=== PATIENT | female | born 1945 | race Caucasian/White ===

== ENCOUNTER 2019-04-02 08:58 | Inpatient (IN) ==
[2019-04-02] MEDS ORDERED: NS 1,000 ML IV ONE (10:02)
--- NOTE | 2019-04-02 10:42 | Diag Imaging Result Doc PS360 ---
EXAM: CT ABDOMEN/PELVIS W/O CONTRAST HISTORY: abdominal pain TECHNIQUE: CT abdomen and pelvis without intravenous contrast COMPARISON: 07/17/2017 FINDINGS: There is a large calcified granuloma in the left lung base. No pleural effusions. No cardiomegaly. There is an 18 mm stone within the gallbladder. The common bile duct is dilated with a diameter on at least 13 mm. This is similar to the prior study. No splenomegaly. No focal hepatic abnormality identified on this noncontrasted exam. No inflammation about the pancreas. Normal adrenal glands. No renal stones. No hydronephrosis. Severe atherosclerosis. The urinary bladder is overly distended. Prominent stool throughout the colon, particularly in the rectum. No bowel obstruction. The uterus is small. Small amount of free fluid within the pelvis. There is scoliosis with prominent degenerative changes with fusion of the mid and lower lumbar spine. Inferior in plate bone destruction of the L1 vertebra. This is more prominent than on the prior study. IMPRESSION: 1.Constipation and fecal impaction 2.Cholelithiasis with dilated common bile duct 3.Severe atherosclerosis 4.[place] distended urinary bladder 5.Scoliosis with degenerative spine changes and prior fusion of the mid and lower lumbar spine. Progressive bone destruction to the inferior endplate of the L1 vertebra. This exam was performed using automated exposure control, adjustment of mA or kV according to patient size, and/or use of iterative reconstruction technique. Electronically signed by Justino Cheung 04/02/2019 10:40 AM
[2019-04-02 11:14] LABS: BASO# 0.01 X1000 (0.0-0.2); BASO% 0.1 % (0.0-0.8); EOS# 0.01 X1000 (0.0-0.7); EOS% 0.1 % (0.0-10.0); HEMATOCRIT 39.3 % (37.0-47.0); HEMOGLOBIN 13.4 g/dL (12.0-16.0); IMM GRAN# 0.04 X1000 (0.0-0.04); IMM GRAN% 0.2 % (0.0-0.5); LYMPH# 0.33 X1000 (1.2-3.4); MCH 31.8 PG (27-31); MCHC 34.1 g/dL (33-37); MCV 93.3 FL (81-99); MONO# 0.95 X1000 (0.11-0.59); MONO% 5.7 % (1.7-9.3); MPV 10.5 FL (7.4-10.4); NEUT# 15.21 X1000 (1.4-6.5); NEUT% 91.9 % (42.2-75.2); PLT 233 X1000 (130-400); RBC 4.21 XMIL (4.2-5.4); RDW 12.3 % (11.5-14.5); WBC 16.55 X1000 (4.8-10.8)
[2019-04-02 11:30] LABS: ESTIMATED GFR > 60
[2019-04-02 11:33] LABS: AGAP 10; ALKALINE PHOSPHATASE 105 U/L (32-104); BUN 11 mg/dL (8-22); CALCIUM 8.8 mg/dL (8.8-10.2); CHLORIDE 84 mmol/L (98-107); COSMO 241; CREATININE 0.5 mg/dL (0.5-0.9); GLUCOSE 118 mg/dL (70-104); GOT 27 U/L (10-30); GPT 11 U/L (10-36); LIPASE 17 U/L (13-60); POTASSIUM 4.3 mmol/L (3.5-5.1); TCO2 26 mmol/L (25-35); TOTAL PROTEIN 6.8 g/dL (6.3-8.3)
[2019-04-02 11:35] LABS: SODIUM 119 mmol/L (136-145)
--- NOTE | 2019-04-02 12:26 | PROVIDER DOCUMENTATION ---
This chart was entered by Jerri Lance Scribe, acting as scribe for Desi Washington MD. HPI-Abdominal Pain/GI Problem - General Chief Complaint: N/V/D Stated Complaint: N/V/D Time Seen by Provider: 04/02/19 09:51 Source: patient, family (son) Allergies/Adverse Reactions: Patient Allergies Allergy/AdvReac Type Severity Reaction Status Date / Time No Known Allergies Allergy Verified 04/02/19 09:17 Home Medications: Home Medication List Medication Instructions Recorded Confirmed Last Taken Type Alendronate [Fosamax] 1 tab PO DIRECTED 04/02/19 04/02/19 Unknown History Furosemide 1 tab PO DAILY 04/02/19 04/02/19 Unknown History Potassium Chloride 1 tab PO DAILY 04/02/19 04/02/19 Unknown History - History of Present Illness-ABD Nature of Presenting Problems: 74 yowf presents to the ed with c/o abdominal pain with nausea and diarrhea acute onset 24 hrs prior. pt denies vomiting and has hx of anemia and does take iron daily. pt denies blood being in stool Abdominal Pain Onset Location: reports: generalized abdomen Quality of Pain: reports: cramping Severity in ED: reports: moderate Onset/Duration: reports: 24 hours ago Timing: reports: still present, intermittent Activities at Onset: reports: light activity Exposure to sick contacts?: Yes Modifying Factors: improves with: nothing. worse with: palpation Associated Symptoms: reports: diarrhea, nausea. denies: back/neck pain, chest pain, cough, fever/chills, headaches, shortness of breath, vomiting Last BM: this morning Dark Stools Present?: reports: none noticed Rectal Bleeding: reports: none # of Diarrhea Episodes: 24 (in last 24 hrs) Rectal Pain: reports: none # of Vomiting Episodes: 0 Emesis Description: reports: none Bruising or Bleeding Gums?: No Similar Symptoms Previously?: No Recently seen or treated by another doctor?: No Review of Systems - Adult - REVIEW OF SYSTEMS - ADULT Constitutional: denies: chills, fever Eyes: reports: no symptoms reported Ears, Nose, Mouth & Throat: reports: no symptoms reported Cardiovascular: denies: chest pain, palpitations Respiratory: denies: cough, shortness of breath, wheezing Gastrointestinal: reports: see HPI, abdominal pain, diarrhea, vomiting. denies: nausea Genitourinary: reports: no symptoms reported Musculoskeletal: denies: back pain, neck pain Integumentary: reports: no symptoms reported Neurological: denies: dizziness/vertigo, headache/migraines Psychiatric: reports: no symptoms reported Endocrine: reports: no symptoms reported Hematologic/Lymphatic: reports: no symptoms reported Allergic/Immunologic: reports: no symptoms reported All Other Systems: Reviewed and Negative Past History - Adult - PAST MEDICAL HISTORY-ADULT Review of Records: reports: Old Records Reviewed, Nursing Assessment Review, Medications Reviewed, Social history reviewed & non-contributory. Major Childhood Illnesses: reports: denies history Cardiovascular: reports: HTN, hyperlipidemia Respiratory: reports: denies history Gastrointestinal: reports: denies history Obstetrical/Gynecological: reports: denies history Genitourinary: reports: denies history Musculoskeletal: reports: chronic pain Neurological: reports: denies history Endocrine/Immune: reports: denies history Other Conditions: reports: denies history - PRIOR SURGERIES/PROCEDURES Surgical/Procedure History: reports: joint replacement, back/neck, other (cataract removal) - IMMUNIZATION STATUS Childhood Immunizations: See Nurse Assessment Flu Vaccine: See Nurse Assessment - FAMILY HISTORY Family History: reviewed, not pertinent - SOCIAL HISTORY Smoking: denies Substance Use: denies Living Situation: family Physical Exam-General - PHYSICAL EXAM-ADULT Initial Vital Signs Reviewed: Yes - CONSTITUTIONAL General Appearance: appears well, alert, mild distress, thin - EYES Eyes: PERRL/EOMI, pink conjunctivae - HEAD, EARS, NOSE, MOUTH & THROAT HENMT: negative: moist mucous membranes (dry oral) - NECK Neck: non-tender, full range of motion, normal inspection - RESPIRATORY Respiratory: chest non-tender, lungs clear, normal breath sounds - CARDIOVASCULAR Cardiovascular: normal peripheral pulses, regular rate, rhythm - CHEST (BREASTS) Chest/Breast: deferred - GASTROINTESTINAL (ABDOMEN) Abdominal Exam: soft, guarding, tenderness (generalized). negative: rigid, rebound - GENITOURINARY Female Genitalia/Pelvic Exam: deferred Rectal Exam: deferred Hemoccult Exam: deferred - LYMPHATIC Lymphatic: no adenopathy - MUSCULOSKELETAL Back Exam: normal inspection, no CVA tenderness, no vertebral tenderness Extremity: normal range of motion, non-tender, normal inspection - SKIN Integumentary: normal color, warm/dry - NEUROLOGIC Neurologic: grossly normal - PSYCHIATRIC Psych/Mental Status: normal mood/affect, normal thought content, normal thought process, oriented x 3 Progress - PLAN OF CARE/RESULTS Progress/Plan/Lab Results: Vital Signs - 8 hr 04/02/19 09:07 Temperature 98.7 F Pulse Rate 81 Respiratory Rate 18 Blood Pressure 162/77 O2 Sat by Pulse Oximetry 96 Orders Category Date Time Status Saline Loc DIRECTED Care 04/02/19 10:02 Active NPO Diet 04/02/19 10:[address] ABDOMEN/PELVIS W/O CONTRAST [CT] Stat Exams 04/02/19 10:03 Ordered AMYLASE [CHEM] Stat Lab 04/02/19 10:02 Ordered CBC WITH ELECTRONIC DIFF [HEME] Stat Lab 04/02/19 10:02 Ordered COMPREHENSIVE METABOLIC PANEL [CHEM] Stat Lab 04/02/19 10:02 Uncollected LIPASE [CHEM] Stat Lab 04/02/19 10:02 Uncollected URINALYSIS W/POSS RFLX CULT [URINALYSIS] Stat Lab 04/02/19 10:02 Uncollected 0.9% Sodium Chloride Inj [Ns] 1,000 ml Med 04/02/19 10:02 Active IV 999 mls/hr Result Diagrams: 04/02/19 10:40 04/02/19 10:40 - REASSESSMENT Reassessment #1 Time Reassessed: 12:10 Status: unchanged - CT/MRI 1 CT Study: Abdomen, Pelvis Impression: See EMR Report (EXAM: CT ABDOMEN/PELVIS W/O CONTRAST HISTORY: abdominal pain TECHNIQUE: CT abdomen and pelvis without intravenous contrast COMPARISON: 07/17/2017 FINDINGS: There is a large calcified granuloma in the left lung base. No pleural effusions. No cardiomegaly. There is an 18 mm stone within the gallbladder. The common bile duct is dilated with a diameter on at least 13 mm. This is similar to the prior study. No splenomegaly. No focal he patic abnormality identified on this noncontrasted exam. No inflammation about the pancreas. Normal adrenal glands. No renal stones. No hydronephrosis. Severe atherosclerosis. The urinary bladder is overly distended. Prominent stool throughout the colon, particularly in the rectum. No bowel obstruction. The uterus is small. Small amount of free fluid within the pelvis. There is scoliosis with prominent degenerative changes with fusion of the mid and lower lumbar spine. Inferior in plate bone destruction of the L1 vertebra. This is more prominent than on the prior study. IMPRESSION: 1.Constipation and fecal impaction 2.Cholelithiasis with dilated common bile duct 3.Severe atherosclerosis 4.[place] distended urinary bladder 5.Scoliosis with degenerative spine changes and prior fusion of the mid and lower lumbar spine. Progressive bone destruction to the inferior endplate of the L1 vertebra. This exam was performed using automated exposure control, adjustment of mA or kV according to patient size, and/or use of iterative reconstruction technique. Electronically signed by Justino Cheung 04/02/2019 10:40 AM 04/02/19 1040 Interpreting Physician: Justino Cheung MD Dictated Date/Time: 04/02/19 1035 cc: Desi Washington MD;) - CONSULTS/PCP/HOSPITALIST Notification #1 *Consult/PCP/Hospitalist*: hospitalist dr talavera Time Discussed: 12:20 Consult Disposition: Will see in ED, Admit Departure - Departure Date of Disposition Decision: 04/02/19 Time of Disposition Decision: 12:25 DIAGNOSIS: Hyponatremia Constipation Qualifiers: Constipation type: unspecified constipation type Qualified Code(s): K59.00 - Constipation, unspecified Disposition: ADMITTED INPATIENT 09 Certified Medical Emergency: Emergent Condition: Good Referrals and Follow-Ups: Oriana Valentino MD [Primary Care Provider] - - Critical Care Note This patient required my direct & personal management of CC.: No Attestation - Physician/ SUHAS Attestation Patient care was provided by Advanced Practice Provider:: No The physician spent face to face time with patient:: Yes Advanced Practice Provider documentation review:: Supervising physician onsite and consulted in the evaluation and care of this patient. The physician did have a face to face encounter with the patient. This chart was documented by the indicated scribe, (Jerri Lance Scribe) and accurately reflects the services I performed and decisions made by me, Desi Washington MD, as attested by the provider's signature.
[2019-04-02] MEDS ORDERED: FLEET ENEMA PR ONE (12:29)
[2019-04-02] MEDS ORDERED: FLEET MINERAL OIL ENEMA PR ONE (12:29)
[2019-04-02] MEDS ORDERED: ZOFRAN IV PRN (12:33)
[2019-04-02] MEDS ORDERED: NS 1,000 ML IV SCH (12:45)
[2019-04-02 13:23] LABS: URINE SOURCE CATH
[2019-04-02 13:27] LABS: BILIRUBIN URINE NEGATIVE (NEGATIVE); BLOOD URINE NEGATIVE (NEGATIVE); COLOR YELLOW; GLUCOSE URINE NEGATIVE (NEGATIVE); KETONE URINE NEGATIVE (NEGATIVE); LEUKOCYTES URINE NEGATIVE (NEGATIVE); NITRITE URINE NEGATIVE (NEGATIVE); PROTEIN URINE NEGATIVE (NEGATIVE); SP GRAVITY URINE 1.009; TURBIDITY URINE CLEAR (CLEAR); UROBILINOGEN URINE NORMAL (NORMAL)
[2019-04-02 13:28] LABS: UR EPITHELIAL CELLS <10 /HPF (<10); URINE BACTERIA NEGATIVE /HPF; URINE RBC <10 /HPF (<10); URINE WBC <10 /HPF (<10)
[2019-04-02] MEDS ORDERED: CITRATE OF MAGNESIA PO ONE (13:29)
[2019-04-02 15:57] LABS: AGAP 13; BUN 9 mg/dL (8-22); CALCIUM 8.5 mg/dL (8.8-10.2); CHLORIDE 91 mmol/L (98-107); COSMO 247; CREATININE 0.4 mg/dL (0.5-0.9); ESTIMATED GFR > 60; GLUCOSE 144 mg/dL (70-104); POTASSIUM 3.8 mmol/L (3.5-5.1); SODIUM 122 mmol/L (136-145); TCO2 18 mmol/L (25-35)
[2019-04-02] MEDS ORDERED: NORVASC PO ONE (18:35)
--- NOTE | 2019-04-02 20:26 | HISTORY AND PHYSICAL ---
CHIEF COMPLAINT: Diarrhea, nausea. HISTORY OF PRESENT ILLNESS: This is a 74-year-old female who presents to the emergency room complaining of diarrhea and nausea. She states this started about 24 hours prior. Ms. Rizzo has a history of constipation and usually takes MiraLAX daily. She has not taken it over the last week. She states her last bowel movement was 4 days prior. She began to feel abdominal fullness, and over the last 3 days she developed nausea, then abdominal cramping and diarrhea. CT scan was performed in the emergency room, which revealed constipation with fecal impaction with prominent stool throughout the colon, particularly in the rectum, with no bowel obstruction, as well as an over overly distended bladder. PAST MEDICAL HISTORY: Hypertension and chronic constipation. PAST SURGICAL HISTORY: She had a left total shoulder arthroplasty and right shoulder arthroplasty. SOCIAL HISTORY: She lives with her son. She denies any alcohol, tobacco, or illicit drug use. ALLERGIES: No known drug allergies. HOME MEDICATIONS: MiraLAX, Fosamax, furosemide, and potassium. REVIEW OF SYSTEMS: Discussed with the patient with pertinent positives stated in the HPI. She denied any syncope, dizziness, chest pain, palpitations, any fevers or chills, shortness of breath, cough, any PND, orthopnea, any vomiting, any black or bloody vomitus or stools, or any hematuria. PHYSICAL EXAMINATION: GENERAL: This is a 74-year-old female who is lying on the stretcher in the emergency room in no distress. VITAL SIGNS: Blood pressure is 162/77 with a heart rate of 81, respirations 18, temperature 98.7 with O2 saturation 96% on room air. HEENT: Head is normocephalic, atraumatic. Pupils equal, round, and reactive to light. Sclerae are anicteric. Mucous membranes are moist. NECK: Supple, with trachea midline. CARDIOVASCULAR: Regular rate and rhythm. S1 and S2 appreciated. Calves are nontender bilaterally with peripheral pulses palpable x4 extremities. PULMONARY: Breath sounds are clear with no increased work of breathing noted. GASTROINTESTINAL: Abdomen is soft, nontender, nondistended. Bowel sounds in all 4 quadrants. : Bladder is palpable to about 2 finger widths above the pubis. SKIN: Warm and dry. LABS: WBC is 16.5 with hemoglobin 13.4, hematocrit 39.3, and platelets 233. Sodium is 119, potassium 4.3, BUN 11, creatinine 0.5, glucose of 118. Urinalysis is essentially negative. CT of the abdomen and pelvis revealed prominent stool throughout the colon, particularly in the rectum, with no bowel obstruction, cholelithiasis with dilated common bile duct that is similar to prior study of June 2017, overly distended urinary bladder, and scoliosis with degenerative spine changes. ASSESSMENT AND PLAN: 1. Constipation with rectal impaction. We will give a [place] oil enema followed by a Fleet saline enema. Give Magnesium citrate and monitor input and output. We will start MiraLAX twice a day to her back on her home regimen. 2. Hyponatremia. This is chronic. In review of her records over the past 5 years, her sodium stays around 125 to 128. It is at 119. We will continue to monitor her closely in the ICU, or if no beds are available, we will keep her in the emergency room at present. Will place her on telemetry. Will rehydrate and will check a basic metabolic panel at 3 o'clock and at 8 o'clock and treat accordingly. 3. Leukocytosis. 4. Hypertension. The patient states she has been off her medications for quite some time. Blood pressures are staying in the 180s over 90s primarily. She was treated in the past with amlodipine 2.5 daily. They stated that any higher medications dropped her blood pressure too low. We will start this and monitor. 5. Repeat a complete blood count and basic metabolic panel in the morning. We will give Zofran for nausea. We will let her start with sips of clear liquids and advance her diet as tolerated. 6. Bladder distention. A Kerns catheter was placed and 550 mL of urine obtained. 7. Plan was discussed with Dr. Whitaker. Further treatments pending hospital course. Dictated by FARIDEH Alicia for Dionicio Whitaker MD cc: FARIDEH Alicia MD
[2019-04-02 20:39] LABS: AGAP 9; BUN 10 mg/dL (8-22); CALCIUM 7.7 mg/dL (8.8-10.2); CHLORIDE 90 mmol/L (98-107); COSMO 250; CREATININE 0.4 mg/dL (0.5-0.9); ESTIMATED GFR > 60; GLUCOSE 131 mg/dL (70-104); POTASSIUM 3.9 mmol/L (3.5-5.1); SODIUM 124 mmol/L (136-145); TCO2 25 mmol/L (25-35)
[2019-04-02 22:22] LABS: OCCULT BLOOD 1 NEGATIVE (NEGATIVE)
--- NOTE | 2019-04-02 22:39 | HISTORY AND PHYSICAL ---
ADDENDUM: Patient seen and examined by myself. Full note dictated and discussed with nurse practitioner. The patient is a 74-year-old female who has a known history of hyponatremia, although she presented today with sodium lower than her typical. Currently it is 119. She has been having diarrhea. 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 We are going to admit her to the hospital, attempt to fluid restrict as possible. I did discuss with her the need to not just drink water but Gatorade or some other substance occasionally. We will continue to follow. cc: Dionicio Whitaker MD
[2019-04-03 06:00] LABS: AGAP 9; BUN 8 mg/dL (8-22); CALCIUM 7.5 mg/dL (8.8-10.2); CHLORIDE 90 mmol/L (98-107); COSMO 249; CREATININE 0.3 mg/dL (0.5-0.9); ESTIMATED GFR > 60; GLUCOSE 142 mg/dL (70-104); POTASSIUM 4.1 mmol/L (3.5-5.1); SODIUM 123 mmol/L (136-145); TCO2 24 mmol/L (25-35)
[2019-04-03 06:23] LABS: BASO# 0.01 X1000 (0.0-0.2); BASO% 0.1 % (0.0-0.8); EOS# 0.07 X1000 (0.0-0.7); EOS% 0.5 % (0.0-10.0); IMM GRAN# 0.02 X1000 (0.0-0.04); IMM GRAN% 0.1 % (0.0-0.5); LYMPH# 0.38 X1000 (1.2-3.4); LYMPH% 2.8 % (20.5-51.1); MCH 31.3 PG (27-31); MCHC 33.3 g/dL (33-37); MONO# 1.28 X1000 (0.11-0.59); MONO% 9.4 % (1.7-9.3); MPV 9.8 FL (7.4-10.4); NEUT# 11.79 X1000 (1.4-6.5); NEUT% 87.1 % (42.2-75.2); PLT 217 X1000 (130-400); RBC 3.83 XMIL (4.2-5.4); RDW 12.5 % (11.5-14.5); WBC 13.55 X1000 (4.8-10.8)
[2019-04-03 07:50] LABS: LYMPHS 2 % (21-51); MONO 10 % (1-9); SEGS 88 % (42-75)
[2019-04-03] MEDS ORDERED: SODIUM CHLORIDE PO SCH (09:00)
[2019-04-03] MEDS ORDERED: NORVASC PO SCH (09:00)
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
--- NOTE | 2019-04-04 00:27 | PROGRESS NOTE ---
DATE: 04/03/2019 SUBJECTIVE: The patient notes that she is feeling better. She notes that did have a large bowel movement earlier today. Denies any fevers or chills. Denies any blood in her stool. OBJECTIVE: Vital Signs: Temperature is 97.7, pulse 79, respiratory rate 18, BP 171/77. General: The patient is awake, she is in no current distress. HEENT: Normocephalic. Neck: Supple. Cardiovascular: Regular rate. Chest: Clear. Abdomen: Soft, nondistended. Extremities: Moves all extremities. ASSESSMENT: 1. Constipation with rectal impaction appears to have cleared. KUB currently pending. 2. Hyponatremia, improved, sodium up to 123. Her chronic baseline is 125 to 128. 3. Leukocytosis, resolved. 4. Hypertension. 5. Bladder distention. PLAN: We will continue the patient in the hospital. Continue to follow. We will advance her diet saline lock. Recheck labs in the a.m. If back to normal hopefully she can discharge home. cc: Dionicio Whitaker MD
[2019-04-04 06:05] LABS: BASO# 0.01 X1000 (0.0-0.2); BASO% 0.1 % (0.0-0.8); EOS# 0.19 X1000 (0.0-0.7); EOS% 2.1 % (0.0-10.0); HEMATOCRIT 38.7 % (37.0-47.0); IMM GRAN# 0.03 X1000 (0.0-0.04); IMM GRAN% 0.3 % (0.0-0.5); LYMPH# 0.45 X1000 (1.2-3.4); MCH 31.6 PG (27-31); MCHC 33.6 g/dL (33-37); MCV 93.9 FL (81-99); MONO# 1.05 X1000 (0.11-0.59); MONO% 11.8 % (1.7-9.3); MPV 9.9 FL (7.4-10.4); NEUT% 80.7 % (42.2-75.2); PLT 214 X1000 (130-400); RBC 4.12 XMIL (4.2-5.4); RDW 12.3 % (11.5-14.5); WBC 8.93 X1000 (4.8-10.8)
[2019-04-04 06:13] LABS: AGAP 7; BUN 7 mg/dL (8-22); CALCIUM 7.7 mg/dL (8.8-10.2); CHLORIDE 94 mmol/L (98-107); COSMO 252; CREATININE 0.3 mg/dL (0.5-0.9); ESTIMATED GFR > 60; GLUCOSE 102 mg/dL (70-104); POTASSIUM 4.5 mmol/L (3.5-5.1); SODIUM 126 mmol/L (136-145); TCO2 25 mmol/L (25-35)
[2019-04-04 07:45] VITALS: BP 181/74
--- NOTE | 2019-04-05 17:12 | DISCHARGE SUMMARY ---
ADMISSION DATE: 04/02/2019 DISCHARGE DATE: 04/04/2019 DISCHARGE DIAGNOSIS: 1. Hyponatremia, improved. Sodium was 118 on admit, 128 on discharge. 2. Constipation improved. 3. Leukocytosis resolved . 4. Hypertension. The patient was admitted, treated in usual fashion. She was placed on normal saline which elevated her sodium nicely. She does have a chronic history of low sodium in the 125 to 128 range. She was at her baseline. On discharge she is awake, alert. She is asking to go home. States that she feels much better. She did have a large bowel movement. We are going to discharge her home. Greater than 30 minutes was spent in total care. Discussed with patient that she does not need to salt avoid and in fact should consider adding salt occasionally to her food. Consider electrolyte drink such as G2. She will need to follow up outpatient with her primary care in 1 week to recheck her sodium levels. cc: Dionicio Whitaker MD
== END 2019-04-04 09:33 | disposition home or self-care (01) | DRG 389 ==
LOC: P.ED 08:58 → P.MEDSURG 08:59
PROVIDERS: ATTEND Family Medicine